=== PATIENT | male | born 1945 | race Caucasian/White ===

== ENCOUNTER 2024-11-26 15:29 | Emergency (ER) | payer MEDICARE, SELFPAY ==
--- NOTE | ~2024-11-26 | XR_ITS ---
EXAMINATION: XR chest 2V DATE: 11/26/2024 16:28 INDICATION: Congestion. Fever. TECHNIQUE: Frontal and lateral views of the chest were obtained. COMPARISON: Chest 2 views 01/27/2019 FINDINGS: Hunter B-lines are noted, consistent with mild pulmonary edema. No pleural effusion or pneu mothorax. Cardiomegaly is noted. Again seen are radiopaque foreign bodies in left neck. There are ana gical clips in the abdomen. There is a compression fracture of T12. IMPRESSION: 1. Mild pulmonary edema. 2. Cardiomegaly. Reviewed, dictated and finalized at location A. RNATIONAL PROJECT ENGINEER
[2024-11-26 15:42] VITALS: BP 166/71; PULSE 98; RESP 20; TEMP 38.1; O2SAT 100
--- NOTE | 2024-11-26 16:09 | ECG_ITS ---
Test Date: 2024-11-26 16:41:21 Measurements Intervals [place] Rate: 90 P: 43 MO: 181 QRS: -37 QRSD: 157 T: 78 QT: 383 QTc: 470 Interpretive Statements SINUS RHYTHM POSSIBLE LEFT ATRIAL ENLARGEMENT [-0.1mV P WAVE IN V1/V2] MARKED LEFT AXIS DEVIATION [QRS AXIS < -30] LEFT BUNDLE BRANCH BLOCK [120+ ms QRS DURATION, 80+ ms Q/S IN V1/V2, 85+ ms R IN I/aVL/V5/V6] No previous ECG available for comparison Electronically Signed On 11-26-2024 21:11:01 PIPE ORGAN BUILDER by Oleg Paredes M.D.
--- NOTE | 2024-11-26 16:12 | ED.GENADULT ---
HPI - General Adult General Chief complaint: Unspecified Stated complaint: Leg Pain/Chest Congestion Time Seen by Provider: 11/26/24 16:12 Source: patient Mode of arrival: ambulatory Limitations: no limitations History of Present Illness HPI narrative: 79 y/o male presented for c/o chest congestion and generalized weakness x3 days. says he did not feel like eating his meal today. Patient says his legs ?do not want to work. ? Endorses discomfort? to the mid chest. Denies cough, shortness of breath, wheezing, vomiting diarrhea, fevers or lethargy Related Data Home Medications ?Medication ?Instructions ?Recorded ?Confirmed ?Last Taken ?Type atorvastatin 20 mg tablet 20 mg PO QPM 11/26/24 11/26/24 Unknown History losartan 50 mg tablet 50 mg PO DAILY 11/26/24 11/26/24 Unknown History metformin 500 mg tablet 500 mg PO DAILY 11/26/24 11/26/24 Unknown History metoprolol succinate 25 mg 25 mg PO DAILY 11/26/24 11/26/24 Unknown History tablet,extended release 24 hr omeprazole 20 mg capsule,delayed 20 mg PO DAILY 11/26/24 11/26/24 Unknown History release Allergies Allergy/AdvReac Type Severity Reaction Status Date / Time No Known Allergies Allergy Verified 11/26/24 15:46 Review of Systems Review of Systems: per HPI All systems reviewed & are unremarkable except as noted in HPI and below [facility] Past Medical History Medical History (Updated 11/26/24 @ 17:01 by Gianna King, PORFIRIO) Diabetes Comments At time of signature, I have reviewed and agree with nursing past medical, surgical, social and family history unless otherwise noted. Please see nursing chart for further information. There is no relevant family history pertinent to the presenting complaint Exam Narrative: GENERAL: Well-appearing EYES: EOMI. No redness or drainage. Conjunctivae normal. ENT: Mucous membranes pink and moist. No rhinorrhea. CHEST: No respiratory distress. Clear to auscultation. HEART: Regular rate and rhythm. No murmur appreciated. Normal peripheral pulses. ABDOMEN: Soft, nontender, nondistended, normal active bowel sounds. EXTREMITIES: Normal range of motion. No edema. SKIN: Warm, dry, no rash. Capillary refill normal. Normal skin turgor. NEURO: No focal deficits. Alert and oriented x3. Gait steady. PSYCH: Normal affect. Course Course Emergency Course: Patient is aware of diagnosis, understands and agrees to treatment plan. Anticipatory guidance given. Patient agrees to follow-up as directed and is aware of reasons to seek care at the emergency department. Portions of this record may have been created with voice recognition software Level of Care: Express Care Visit Vital Signs Vital signs: Vital Signs Temperature 100.5 F H 11/26/24 15:42 Pulse Rate 98 11/26/24 15:42 Respiratory Rate 20 11/26/24 15:42 Blood Pressure 166/71 H 11/26/24 15:42 Pulse Oximetry 100 11/26/24 15:42 Oxygen Delivery Room Air 11/26/24 15:42 Temperature 100.5 F H 11/26/24 15:42 Pulse Rate 98 11/26/24 15:42 Respiratory Rate 20 11/26/24 15:42 Blood Pressure 166/71 H 11/26/24 15:42 Pulse Oximetry 100 11/26/24 15:42 Oxygen Delivery Room Air 11/26/24 15:42 Medical Decision Making MDM Narrative Medical decision making narrative: Discussed physical exam findings; EKG and CXR reviewed with pt showed mild pulmonary edema. Advised supportive measures and signs/symptoms to go to the ER. Pt is appropriate for outpt treatment and f/u. Offered ER transfer, declines, Says he is scheduled with pcp tomorrow. Differential Diagnosis Differential Diagnosis: Influenza, covid, sinusitis, OM, strep pharyngitis, URI Vital Signs Vital Signs: Vital Signs Temperature 100.5 F H 11/26/24 15:42 Pulse Rate 98 11/26/24 15:42 Respiratory Rate 11/26/24 15:42 Blood Pressure 166/71 H 11/26/24 15:42 Pulse Oximetry 100 11/26/24 15:42 Oxygen Delivery Room Air 11/26/24 15:42 Temperature 100.5 F H 11/26/24 15:42 Pulse Rate 98 11/26/24 15:42 Respiratory Rate 11/26/24 15:42 Blood Pressure 166/71 H 11/26/24 15:42 Pulse Oximetry 100 11/26/24 15:42 Oxygen Delivery Room Air 11/26/24 15:42 reviewed Imaging Data Radiologist's impression: Patient: Andre Vazquez : 1945 MR#: [id number] Age: 79 Acct:[id number] Loc: [facility] ADM Date: 11/26/24Attending Dr: Ordering Physician: Gianna King APRN Date of Service: 11/26/24 Procedure(s): XR chest 2V Accession Number(s): [id number] cc: Gianna King APRN; EMERGENCY DEPARTMENT RN PHYSICIAN~ EXAMINATION: XR chest 2V DATE: 11/26/2024 16:28 INDICATION: Congestion. Fever. TECHNIQUE: Frontal and lateral views of the chest were obtained. COMPARISON: Chest 2 views 01/27/2019 FINDINGS: Hunter B-lines are noted, consistent with mild pulmonary edema. No pleural effusion or pneumothorax. Cardiomegaly is noted. Again seen are radiopaque foreign bodies in left neck. There are surgical clips in the abdomen. There is a compression fracture of T12. IMPRESSION: 1. Mild pulmonary edema. 2. Cardiomegaly. ECG Data EKG #1: Attestation: I personally reviewed and interpreted this ECG as follows: (Sinus rhythm 90, ME 181, QRS 157, QT/QTC 383/431) ECG completion date: 11/26/24 ECG completion time: 16:41 Prior ECG tracings: not available for review EKG Interpretation: normal rate, sinus rhythm and LBBB Discharge Plan Discharge Clinical Impression: Viral infection Patient Disposition: Home, Self-Care Condition: Stable Instructions: Antibiotic Form, Viral Syndrome (ED) Additional Instructions: Flu and COVID negative. Avoid crowds until you do not have a fever and symptoms are improved Tylenol 1000mg every 8 hours as needed for pain/fever Follow up with your primary care provider as scheduled tomorrow Go to the ER for worsening symptoms or concerns Patient Language: Lao Prescriptions: No Action atorvastatin 20 mg tablet 20 mg PO QPM losartan 50 mg tablet 50 mg PO DAILY metformin 500 mg tablet 500 mg PO DAILY metoprolol succinate 25 mg tablet extended release 24 hr 25 mg PO DAILY omeprazole 20 mg capsule,delayed release(DR/EC) 20 mg PO DAILY Follow-up/Referrals: PHYSICIAN,EMERGENCY DEPARTMENT RN [Primary Care Provider] - Time of Disposition: 16:54
[2024-11-26 16:49] LABS: EDCOVIDSCREEN Negative (Negative); EDINFLUASCREEN Negative (Negative); EDINFLUBSCREEN Negative (Negative)
== END 2024-11-26 17:02 | disposition home or self-care (01) ==
PROVIDERS: Emergency Provider Nurse Practitioner Family
DX: B34.9 Viral infection, unspecified (principal); Z20.822 Contact with and (suspected) exposure to COVID-19; I44.7 Left bundle-branch block, unspecified; E11.9 Type 2 diabetes mellitus without complications
CPT/HCPCS: 71046; 87426; 87804; 93005; 99203; G0463

== ENCOUNTER 2024-11-27 09:45 | Outpatient (CLI) | payer MEDICARE, OTHER, SELFPAY ==
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
[2024-11-27 10:19] LABS: Basophils Absolute Auto 0.03 K/mm3 (0.00-0.10); Basophils Percent Auto 0.4 % (0.0-1.0); Eosinophils Absolute Auto 0.03 K/mm3 (0.02-0.50); Eosinophils Percent Auto 0.4 % (1.0-6.0); Hematocrit 44.2 % (37.0-46.0); Immature Granulocyte Absolute 0.02 K/mm3 (0.00-0.00); Immature Granulocyte Percent A 0.3 % (0.0-0.0); Lymphocytes Absolute Auto 1.39 K/mm3 (1.10-4.50); Lymphocytes Percent Auto 18.7 % (18.0-42.0); Mean Corpuscular HGB Conc 33.9 g/dL (32-36); Mean Corpuscular Hemoglobin 29.8 pg (27.0-31.0); Mean Corpuscular Volume 87.7 fL (78.0-102.0); Mean Platelet Volume 9.8 fl (8.7-11.0); Monocytes Absolute Auto 0.73 K/mm3 (0.10-0.90); Monocytes Percent Auto 9.8 % (2.0-11.0); Neutrophils Absolute Auto 5.25 K/mm3 (1.70-7.20); Neutrophils Percent Auto 70.4 % (50.0-70.0); Platelet Count Result 167 K/mm3 (150-420); Red Blood Count 5.04 M/mm3 (4.70-6.10); White Blood Count 7.5 K/mm3 (4.8-10.8)
[2024-11-27 10:27] LABS: Add Urine Microscopic? YES; Appearance Urine Clear (Clear); Bilirubin Urine Negative (Negative); Blood Urine Negative (Negative); Color Urine Light Yellow (Yellow); Glucose Urine UA 2+ (Negative); Ketones Urine Negative (Negative); Leukocyte Esterase Ur Negative (Negative); Nitrate Urine Negative (Negative); Protein Urine 1+ (Negative); pH Urine 5.5 (5.0-8.0)
--- OUTSIDE RECORDS SUMMARY | 2024-11-27 10:33 | XMS_ITS | Encounter Summary ---
Author Organization [facility] - [facility] Address [address] [place] [address]. [place] [address] [place] [address] Care Team Providers Care Investigations Chief Name Role Phone Brendon Mathews MD Primary Care Provider [phone] Encounter Details Date Type Department Care Team (Late st Contact Info) Description 08/13/2020 Abstract [facility] [address] [place] [address] Abstract, Doc [facility] Social History Tobacco Use Types Packs/Day Years Used Date Smoking Tobacco: Never Alcohol Use Standard Drinks/Week Comments Never 0 (1 standard drink = 0.6 oz pur e alcohol) AUDIT-C Answer Date Recorded Q1: How often do you have a drink containing alc ohol? 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 No / Unsure 08/07/2020 9:51 AM CDT documented as of this encounter Plan of Treatment Not on file documented as of this encounter Visit Diagnoses Not on filedocumented in this encounter Care Teams Investigations Chief Relationship Specialty Start Date End Date Brendon Mathews MD [address] [place] [id number] PCP - General FAMILY PRACTICE 07/14/20 documented as of this encounter
--- OUTSIDE RECORDS SUMMARY | 2024-11-27 10:33 | XMS_ITS | Clinical Summary ---
Author Organization [facility] Address [address] [place] [address]. [place] [address] [place] [address] Care Team Providers Care Mill Manager Name Role Phone Brendon Mathews MD Primary Care Provider [phone] Allergies Active Allergy Reactions Criticality Noted Date Comments Miconazole Sneezing 08/13/2020 Medications atorvastatin 20 MG tablet Take 1 tablet (20 mg total) by mouth daily. 07/31/2020 Active losartan 50 MG tablet TK 1 AND 1/2 TS PO D 07/31/2020 Active metFORMIN 500 MG tablet Take 1 tablet (500 mg total) by mouth 2 (two) times daily. 07/31/2020 Active metoprolol succinate ER 25 MG 24 hr tablet Take 0.5 tablets (12.5 mg total) by mouth daily. 07/31/2020 Active omeprazole 20 MG capsule TK 1 C PO D 07/31/2020 Active finasteride (PROSCAR) 5 MG tablet Take 1 tablet (5 mg total) by mouth daily. Active Active Problems Problem Noted Date Diagnosed Date Abnormal stress test 08/22/2020 Essential hypertension 08/22/2020 Mixed hyperlipidemia 08/22/2020 Encounters Date Type Department Care Team Description 09/18/2024 [facility] [address] [place] [address] Brittany Owen LPN Pre-visit Gap Closure from Last 3 Months Immunizations Name Administration Dates Next Due Fluzone High Dose (IIV, trivalent, 0.5mL) 2023,07/14/2017 Fluzone High Dose - >Age 65 (Prefilled Syringe) 07/15/2023,08/06/2022,07/31/2021 Influenza (Generic) 08/21/2015,08/10/2014,2011 PFIZER COVID-19 (12+) MRNA, LNP-S, PF, ANNABEL-SUCROSE, 30 MCG/0.3 ML (COMIRNATY) 07/10/2024,01/30/2024 PFIZER COVID-19 (GOODSON CAP), MRNA, LNP-S, PF, 30 MCG/0.3 ML ANNABEL-SUCROSE, IM 02/12/2022 Pneumococcal (Prevnar 13) 08/16/2017 Pneumococcal (Prevnar 20) 02/07/2024 Shingrix 05/26/2022,09/02/2021 Tdap (Generic) 09/02/2021 Zoster (Zostavax) 84349 Unt/0.65Ml 07/01/2014 Family History Medical History Relation Comments Sleep Apnea Father Diabetes Mother Downs syndrome Sister 2 Relation Status Comments Father Mother Sister 1 Sister 2 Sister 3 Alive Social History Tobacco Use Types Packs/Day Years Used Date Smoking Tobacco: Never Smokeless Tobacco: Never Alcohol Use Standard Drinks/Week Comments [...] on file Legal 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 SUPERVISOR 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 Gender Identity Not on file Sexual Orientation Not on file Last Filed Vital Signs Vital Sign Reading Time Taken Comments Blood Pressure 180/63 09/20/2023 9:38 AM SUPERVISOR SCENIC ARTS Pulse 55 09/20/2023 9:38 AM SUPERVISOR SCENIC ARTS Temperature 36.2 ??C (97.1 ??F) 09/20/2023 9:38 AM CS T Respiratory Rate 18 09/20/2023 9:38 AM SUPERVISOR SCENIC ARTS Oxygen Saturation 100% 09/20/2023 9:38 AM SUPERVISOR SCENIC ARTS Inhaled Oxygen Concentration - - Weight 93 kg (205 lb) 09/12/2023 9:38 AM SUPERVISOR SCENIC ARTS Height 175.3 cm (5' 9 ) 09/12/2023 9:38 AM SUPERVISOR SCENIC ARTS Body Mass Index 30.27 09/12/2023 9:38 AM SUPERVISOR SCENIC ARTS Plan of Treatment Health Maintenance Due Date Last Done Comments Hepatitis C 1963 Annual Medicare Wellness Visit 2011 RSV Immunization or 60+ Years (1 - 1-dose 75+ series) 2021 DTaP, Tdap and Td Vaccines (2 - Td or Tdap) 09/02/2031 09/02/2021 Zoster Vaccines Completed 05/26/2022, 12/2020, 07/01/2014 Colorectal Cancer Screening Colonoscopy (10 Years) Discontinued 09/20/2023, 09/20/2023 Pneumococcal Vaccine: 65+ Years Completed 02/07/2024, 08/16/2017 COVID-19 Vaccine Completed 07/10/2024, 10/2023, 07/27/2023, Additional history exists Influenza Adult Completed 07/10/2024, 07/01, 08/06/2022, Additional history exists Meningococcal B Vaccine Aged Out No l onger eligible based on patient's age to complete this topic Meningococcal Vaccine Aged Out No katie dariel eligible based on patient's age to complete this topic RSV Immunizations Under 20 Months Aged Out No longer eligible based on patient's age to complete this topic Procedures Procedure Name Priority Date/Time Associated Diagnosis Comments COLONOSCOPY 09/20/2023 6:49 AM SUPERVISOR SCENIC ARTS from Last 3 Months or Most Recently Relevant to Health Maintenance Results * Colonoscopy (09/20/2023 6:49 AM SUPERVISOR SCENIC ARTS) Silvestre Ogden MD GI PROCEDURE ORDERABLES Final Result from Last 3 Months or Most Recently Relevant to Health Maintenance Insurance * Guarantor: Andre Vazquez Account Type Relation to Patient Date of Phone Billing Address Personal/Family Self 1945 [address] [place] [address] [employer] Care Teams Mill Manager Relationship Specialty Start Date End Date Brendon Mathews MD [address] [place] [address] PCP - General FAMILY PRACTICE 07/14/20
[2024-11-27 10:45] LABS: Bacteria Urine Trace /hpf; RBC Urine None seen /hpf (0-2); Squamous Epithelial Cell Urine Rare /hpf (Few); WBC Urine None seen /hpf (0-3)
[2024-11-27 10:55] LABS: SARS-CoV-2 RNA PCR Negative (Negative)
[2024-11-27 10:57] LABS: Influenza A QL RT-PCR Negative (Negative); Influenza B QL RT-PCR Negative (Negative)
[2024-11-27 11:02] LABS: Alanine Aminotransferase 39 U/L (16-63); Albumin Level 3.9 g/dL (3.4-5.0); Alkaline Phosphatase 72 U/L (46-116); Anion Gap 13 mmol/L (4-12); Aspartate Amino Transferase 24 U/L (15-37); Bilirubin,Total 0.8 mg/dL (0.00-1.00); Blood Urea Nitrogen 17 mg/dL (7-18); Carbon Dioxide 24 mmol/L (21-32); Chloride 100 mmol/L (98-108); Creatine Kinase 31 U/L (39-308); Estimated Glomerular Filt Rate 51; Glucose 230 mg/dL (70-99); NT Pro B Type Natriuretic Pept 1544 pg/mL (0-450); Osmolality Calculated 292 mOsm/kg (285-295); Potassium 3.8 mmol/L (3.5-5.1); Sodium 137 mmol/L (136-145); Total Protein 7.4 g/dL (6.4-8.2); Troponin I 15.6 ng/L (0.00-60.4); Vitamin B12 562 pg/mL (193-986)
[2024-11-27 11:08] LABS: Creatine Kinase MB < 0.50 ng/mL (0.00-5.00)
[2024-11-29 14:08] LABS: RPR Screen NON-REACTIVE (NON-REACTIVE)
== END 2024-11-27 09:46 | disposition home or self-care (01) ==
LOC: CHSLAB 09:52
PROVIDERS: PCP Family Medicine; Visit Provider Family Medicine
DX: R06.00 Dyspnea, unspecified (principal); R07.9 Chest pain, unspecified; R41.0 Disorientation, unspecified; R29.810 Facial weakness
CPT/HCPCS: 36415; 71046; 80053; 81001; 82550; 82553; 82607; 83880; 84443; 84484; 85025; 86592; 87086; 87636

== ENCOUNTER 2024-11-30 09:38 | Outpatient (CLI) | payer MEDICARE, OTHER, SELFPAY ==
--- OUTSIDE RECORDS SUMMARY | 2024-11-30 09:53 | XMS_ITS | Clinical Summary ---
Author Organization [facility] Address [address] [place] [address]. 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 Gender Identity Not on file Sexual Orientation Not on file Last Filed Vital Signs Vital Sign Reading Time Taken Comments Blood Pressure 180/63 09/20/2023 9:38 AM FACING END TRIMMER Pulse 55 09/20/2023 9:38 AM FACING END TRIMMER Temperature 36.2 ??C (97.1 ??F) 09/20/2023 9:38 AM CS T Respiratory Rate 18 09/20/2023 9:38 AM FACING END TRIMMER Oxygen Saturation 100% 09/20/2023 9:38 AM FACING END TRIMMER Inhaled Oxygen Concentration - - Weight 93 kg (205 lb) 09/12/2023 9:38 AM FACING END TRIMMER Height 175.3 cm (5' 9 ) 09/12/2023 9:38 AM FACING END TRIMMER Body Mass Index 30.27 09/12/2023 9:38 AM FACING END TRIMMER Plan of Treatment Health Maintenance Due Date [...] Associated Diagnosis Comments COLONOSCOPY 09/20/2023 6:49 AM FACING END TRIMMER from Last 3 Months or Most Recently Relevant to Health Maintenance Results * Colonoscopy (09/20/2023 6:49 AM FACING END TRIMMER) Silvestre Ogden MD GI PROCEDURE ORDERABLES Final Result from Last 3 Months or Most Recently Relevant to Health Maintenance Insurance * Guarantor: Andre Vazquez Account Type Relation to Patient Date of Phone Billing Address Personal/Family Self 1945 [address] [place] [address] [employer] Care Teams Sourcing Intern Relationship Specialty Start Date End Date Brendon Mathews MD [address] [facility] [place] [address] PCP - General FAMILY PRACTICE 07/14/20
--- OUTSIDE RECORDS SUMMARY | 2024-11-30 09:53 | XMS_ITS | Encounter Summary ---
Author Organization [facility] - [facility] Address [address] [place] [address]. 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
[2024-11-30 10:48] LABS: Anion Gap 10 mmol/L (4-12); Blood Urea Nitrogen 23 mg/dL (7-18); Calcium 9.1 mg/dL (8.5-10.1); Carbon Dioxide 26 mmol/L (21-32); Chloride 102 mmol/L (98-108); Estimated Glomerular Filt Rate 56; Glucose 231 mg/dL (70-99); NT Pro B Type Natriuretic Pept 534 pg/mL (0-450); Osmolality Calculated 296 mOsm/kg (285-295); Potassium 3.9 mmol/L (3.5-5.1); Sodium 138 mmol/L (136-145)
== END 2024-11-30 09:39 | disposition home or self-care (01) ==
LOC: CHSLAB 09:40
PROVIDERS: PCP Family Medicine; Visit Provider Family Medicine
DX: R07.9 Chest pain, unspecified (principal); R41.0 Disorientation, unspecified; R06.00 Dyspnea, unspecified
CPT/HCPCS: 36415; 80048; 83880

== ENCOUNTER 2024-12-01 08:56 | Outpatient (CLI) | payer MEDICARE, OTHER, SELFPAY ==
--- NOTE | ~2024-12-01 | MR_ITS ---
EXAMINATION: MR brain/brain stem wo/w con DATE: 12/01/2024 09:46 INDICATION: Facial weakness. Memory loss. TECHNIQUE: Magnetic resonance imaging (MRI) of the brain and brainstem was performed without and with 20 mL MultiHance intravenous contrast. COMPARISON: None. 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 There are scattered areas of nonspecific incre ased T2-weighted signal intensity in the cerebral white matter, which is within normal limits for the patient's age. There are old blood products around the brainstem. There is no acute infarction or ab normal intracranial mass lesion. The ventricles are normal in size. There is mild mucosal thickening in the paranasal sinuses. There are likely changes of ocular lens replacement surgeries. There is a t race right mastoid effusion. IMPRESSION: 1. 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 Reviewed, dictated and finalized at location A. ESTIMATOR
--- OUTSIDE RECORDS SUMMARY | 2024-12-01 09:00 | XMS_ITS | Clinical Summary ---
Author Organization [facility] Address [address] [place] [address]. [place] [address] [place] [address] Care Team Providers Care Mica Patcher Name Role Phone Brendon Mathews MD Primary Care Provider [phone] Allergies Active Allergy Reactions Criticality Noted Date [...] Team Description 09/18/2024 [facility] [address] [place] [address] Brittany Owen LPN Pre-visit Gap [...] Shingrix 05/26/2022,09/02/2021 Tdap (Generic) 09/02/2021 Zoster (Zostavax) 64405 Unt/0.65Ml 07/01/2014 Family History Medical History Relation [...] on file Legal 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 PER DIEM PHYSICAL THERAPIST ASSISTANT Gender Identity Not on file Sexual Orientation Not on file Last Filed Vital Signs Vital Sign Reading Time Taken Comments Blood Pressure 180/63 09/20/2023 9:38 AM PER DIEM PHYSICAL THERAPIST ASSISTANT Pulse 55 09/20/2023 9:38 AM PER DIEM PHYSICAL THERAPIST ASSISTANT Temperature 36.2 ??C (97.1 ??F) 09/20/2023 9:38 AM CS T Respiratory Rate 18 09/20/2023 9:38 AM PER DIEM PHYSICAL THERAPIST ASSISTANT Oxygen Saturation 100% 09/20/2023 9:38 AM PER DIEM PHYSICAL THERAPIST ASSISTANT Inhaled Oxygen Concentration - - Weight 93 kg (205 lb) 09/12/2023 9:38 AM PER DIEM PHYSICAL THERAPIST ASSISTANT Height 175.3 cm (5' 9 ) 09/12/2023 9:38 AM PER DIEM PHYSICAL THERAPIST ASSISTANT Body Mass Index 30.27 09/12/2023 9:38 AM PER DIEM PHYSICAL THERAPIST ASSISTANT Plan of Treatment Health Maintenance Due Date [...] Associated Diagnosis Comments COLONOSCOPY 09/20/2023 6:49 AM PER DIEM PHYSICAL THERAPIST ASSISTANT from Last 3 Months or Most Recently Relevant to Health Maintenance Results * Colonoscopy (09/20/2023 6:49 AM PER DIEM PHYSICAL THERAPIST ASSISTANT) Silvestre Ogden MD GI PROCEDURE ORDERABLES Final Result from Last 3 Months or Most Recently Relevant to Health Maintenance Insurance * Guarantor: Andre Vazquez Account Type Relation to Patient Date of Phone Billing Address Personal/Family Self 1945 [address] [place] [address] [employer] Care Teams Mica Patcher Relationship Specialty Start Date End Date Brendon Mathews MD [address] [place] [address] PCP - General FAMILY PRACTICE 07/14/20
--- OUTSIDE RECORDS SUMMARY | 2024-12-01 09:00 | XMS_ITS | Encounter Summary ---
Author Organization [facility] - [facility] Address [address] [place] [address]. [place] [address] [place] [address] Care Team Providers Care Technology Recruiter Name Role Phone Brendon Mathews MD Primary Care Provider [phone] Encounter Details Date Type Department Care Team (Late st Contact Info) Description 08/13/2020 Abstract [facility] [address] [place] [address] Abstract, Doc [facility] Social History Tobacco Use [...] on file Legal 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 RN VASCULAR Gender Identity Not on file Sexual Orientation [...] on filedocumented in this encounter Care Teams Technology Recruiter Relationship Specialty Start Date End Date Brendon Mathews MD [address] [place] [phone] PCP - General FAMILY PRACTICE 07/14/20 documented as of this encounter
== END 2024-12-01 08:57 | disposition home or self-care (01) ==
LOC: CHSIMG 08:58
PROVIDERS: PCP Family Medicine; Visit Provider Family Medicine
DX: R29.810 Facial weakness (principal); R07.9 Chest pain, unspecified; Z86.73 Personal history of transient ischemic attack (TIA), and cerebral infarction without residual deficits
CPT/HCPCS: 70553; A9577

== ENCOUNTER 2024-12-11 13:51 | Outpatient (CLI) | payer MEDICARE, OTHER, SELFPAY ==
--- NOTE | 2024-12-11 13:57 | ECHO_ITS ---
Patient Info Name: Andre Vazquez Age: 79 years : 1945 Gender: Male Ht: 69 in Wt: 210 lbs BSA: 2.18 m2 HR: 98 bpm BP: 166 / 71 mmHg Heart Rhythm: Sinus Rhythm Technical Quality: Good Exam Date: 12/11/2024 2:31 PM Exam Location: Echo Lab Patient Status: Outpatient Admit Date: 12/11/2024 Staff Ordering Physician: Juan Carlos Maier MD Quiller Operator: Rekha Barr RDCS Attending Provider: Juan Carlos Maier MD Referring Physician: Darrion TRINIDAD; Exam Type: CA echo doppler color flow Study Info Indications - Chest pain Complete two-dimensional, color flow and Doppler transthoracic echocardiogram is performed. Summary 1. Complete two-dimensional, color flow and Doppler transthoracic echocardiogram is performed. 2. Left ventricular chamber dimension is severely enlarged. 3. Left ventricular systolic function is moderately reduced, estimated at 35-40%. 4. The left ventricular diastolic function is grade I diastolic dysfunction. 5. E/e' 6 is not elevated. 6. Left atrial chamber dimension is mildly enlarged. 7. There is mild aortic valve regurgitation. 8. There is mild mitral valve regurgitation. 9. There is trace tricuspid valve regurgitation. 10. Mild pulmonary hypertension, estimated pulmonary arterial systolic pressure is 46 mmHg. 11. There is trace pulmonic regurgitation. 12. There is trivial pericardial effusion. Left Ventricle E/e' 6 is not elevated. Left ventricular chamber dimension is severely enlarged. Left ventricular systolic function is moderately reduced, estimated at 35-40%. The left ventricular diastolic function is grade I diastolic dysfunction. Right Ventricle Right ventricular systolic function is normal and with normal TAPSE 1.8 cm. Right ventricular chamber dimension is normal. Left Atria Left atrial chamber dimension is mildly enlarged. Right Atria Right atrial chamber dimension is normal. Aortic Valve The aortic valve is trileaflet. There is no aortic valve stenosis. There is mild aortic valve regurgitation. Pulmonic Valve There is trace pulmonic regurgitation. Mitral Valve There is no mitral valve stenosis. There is mild mitral valve regurgitation. Tricuspid Valve There is trace tricuspid valve regurgitation. Mild pulmonary hypertension, estimated pulmonary arterial systolic pressure is 46 mmHg. Pericardium/Pleural There is trivial pericardial effusion. Inferior Vena Cava Normal inferior vena cava with >50% collapse upon inspiration consistent with normal right atrial pressure, 5 mmHg. Aorta The aortic root size at the sinus of Valsalva is normal. Left Ventricular Outflow Tract Name Value Normal LVOT 2D LVOT Diameter 2.6 cm LVOT Doppler LVOT Peak Velocity 68 cm/s LVOT Peak Gradient 2 mmHg LVOT Mean Gradient 1 mmHg LVOT VTI 13 cm LVOT VTI/AV VTI Ratio 1.0 LVOT Stroke Volume 71 ml Pulmonic Valve Name Value Normal PV Doppler PV Peak Velocity 129 cm/s PV Peak Gradient 7 mmHg PV Regurgitation Doppler MT Peak End Diastolic Velocity 97 cm/s Mitral Valve Name Value Normal MV Doppler MV Peak Gradient 3 mmHg MV Mean Gradient 1 mmHg MV Decel [place] 210 cm/s2 MV PHT 45 ms MV Area (PHT) 4.9 cm2 4.0-5.0 MV Area (Cont Eq VTI) 3.6 cm2 MV Regurgitation Doppler MR Peak Gradient 82 mmHg MV Diastolic Function MV E Peak Velocity 32 cm/s MV A Peak Velocity 63 cm/s MV E/A 0.5 MV Decel Time 154 ms Tricuspid Valve Name Value Normal TV Regurgitation Doppler TR Peak Velocity 320 cm/s TR Peak Gradient 41 mmHg Estimated PAP/RSVP RA Pressure 5 mmHg <=5 PA Systolic Pressure 46 mmHg <36 RV Systolic Pressure 46 mmHg <36 Aortic Valve Name Value Normal AV Doppler AV Peak Velocity 90 cm/s AV Peak Gradient 3 mmHg AV Mean Gradient 2 mmHg AV VTI 14 cm AV Area (Cont Eq VTI) 5.2 cm2 >=3.0 AV Area (Cont Eq Zeke) 4.1 cm2 AV V1/V2 Ratio 0.75 AV Regurgitation 2D LVOT Area 5.5 cm2 AV Regurgitation Doppler AR Decel Time 2,997 ms AR Decel [place] 134 cm/s2 AR PHT 869 ms Ventricles Name Value Normal LV Dimensions 2D/MM IVS Diastolic Thickness (2D) 1.0 cm 0.6-1.0 LVID Diastole (2D) 6.8 cm 4.2-5.8 LVID Diastole (MM) 6.7 cm 4.2-5.8 LVIW Diastolic Thickness (2D) 1.0 cm 0.6-1.0 LVID Systole (2D) 5.3 cm 2.5-4.0 LVID Systole (MM) 5.2 cm 2.5-4.0 LVOT Diameter 2.6 cm LV Mass (2D Cubed) 316.95 g 88.00-224.00 LV Mass Index (2D Cubed) 145 g/m2 49-115 Relative Wall Thickness (2D) 0.31 LV Fractional Shortening/Ejection Fraction 2D/MM LV Fractional Shortening (2D) 24 % 25-43 LV Fractional Shortening (MM) 23 % 25-43 LV EF (MM Teicholz) 46 % 52-72 LV EF (2D Teicholz) 46 % 52-72 LV Diastolic Volume (4C MOD) 245 ml LV EF (4C MOD) 39 % LV Diastolic Length (4C) 9.1 cm LV Systolic Length (4C) 8.2 cm LV Stroke Volume (4C MOD) 103 ml Atria Name Value Normal LA Dimensions LA Volume (4C A-L) 69 ml RA Dimensions RA Area (4C) 16.2 cm2 <=18.0 Report Signatures
--- OUTSIDE RECORDS SUMMARY | 2024-12-11 14:46 | XMS_ITS | Clinical Summary ---
Author Organization [facility] Address [address] [place] [address] Care Team Providers Care Horse Groomer Name Role Phone Brendon Mathews MD Primary Care Provider [phone] Allergies Active Allergy Reactions Criticality Noted Date Comments Miconazole Sneezing 08/13/2020 Medications atorvastatin 20 MG tablet Take 1 tablet (20 mg total) by mouth daily. 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 Gender Identity Not on file Sexual Orientation Not on file Last Filed Vital Signs Vital Sign Reading Time Taken Comments Blood Pressure 180/63 09/20/2023 9:38 AM WATER RESOURCES PROGRAM DIRECTOR Pulse 55 09/20/2023 9:38 AM WATER RESOURCES PROGRAM DIRECTOR Temperature 36.2 C (97.1 F) 09/20/2023 9:38 AM WATER RESOURCES PROGRAM DIRECTOR Respiratory Rate 18 09/20/2023 9:38 AM WATER RESOURCES PROGRAM DIRECTOR Oxygen Saturation 100% 09/20/2023 9:38 AM WATER RESOURCES PROGRAM DIRECTOR Inhaled Oxygen Concentration - - Weight 93 kg (205 lb) 09/12/2023 9:38 AM WATER RESOURCES PROGRAM DIRECTOR Height 175.3 cm (5' 9 ) 09/12/2023 9:38 AM WATER RESOURCES PROGRAM DIRECTOR Body Mass Index 30.27 09/12/2023 9:38 AM WATER RESOURCES PROGRAM DIRECTOR Plan of Treatment Health Maintenance Due Date [...] Associated Diagnosis Comments COLONOSCOPY 09/20/2023 6:49 AM WATER RESOURCES PROGRAM DIRECTOR from Last 3 Months or Most Recently Relevant to Health Maintenance Results * Colonoscopy (09/20/2023 6:49 AM WATER RESOURCES PROGRAM DIRECTOR) Silvestre Ogden MD GI PROCEDURE ORDERABLES Final Result from Last 3 Months or Most Recently Relevant to Health Maintenance Insurance [employer] * Guarantor: Andre Vazquez Account Type Relation to Patient Date of Phone Billing Address Personal/Family Self 1945 [address] [place] [address] [employer] Care Teams Horse Groomer Relationship Specialty Start Date End Date Brendon Mathews MD [address] [place] [id number] PCP - General FAMILY PRACTICE 07/14/20
--- OUTSIDE RECORDS SUMMARY | 2024-12-11 14:46 | XMS_ITS | Encounter Summary ---
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
== END 2024-12-11 13:52 | disposition home or self-care (01) ==
LOC: CHSIMG 13:53
PROVIDERS: PCP Family Medicine; Visit Provider Family Medicine
DX: R07.9 Chest pain, unspecified (principal); R41.0 Disorientation, unspecified; I27.20 Pulmonary hypertension, unspecified; I08.3 Combined rheumatic disorders of mitral, aortic and tricuspid valves
CPT/HCPCS: 93306

== ENCOUNTER 2025-02-01 11:19 | Outpatient (CLI) | payer MEDICARE, OTHER, SELFPAY ==
--- NOTE | 2025-02-01 11:38 | ECG_ITS ---
Test Date: 2025-02-01 11:51:36 Measurements Intervals [place]mage Rate: 62 P: 58 IA: 173 QRS: 59 QRSD: 155 T: 64 QT: 455 QTc: 464 Interpretive Statements SINUS RHYTHM LEFT BUNDLE BRANCH BLOCK ABNORMAL ECG Compared to ECG 11/26/2024 16:41:21 NO SIGNIFICANT CHANGE Electronically Signed On 02-01-2025 13:43:27 CDT by Myke Amin D.O.
[2025-02-01 11:42] LABS: Hematocrit 42.3 % (37.0-46.0); Hemoglobin 13.9 g/dL (12.4-15.3); Mean Corpuscular HGB Conc 32.9 g/dL (32-36); Mean Corpuscular Hemoglobin 29.4 pg (27.0-31.0); Mean Corpuscular Volume 89.6 fL (78.0-102.0); Mean Platelet Volume 10.1 fl (8.7-11.0); Platelet Count Result 221 K/mm3 (150-420); Red Blood Count 4.72 M/mm3 (4.70-6.10); Red Cell Distribution Width 12.2 % (11.6-14.4); White Blood Count 8.1 K/mm3 (4.8-10.8)
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
--- OUTSIDE RECORDS SUMMARY | 2025-02-01 11:47 | XMS_ITS | Clinical Summary ---
Author Organization [facility] Address [facility] [place] [address] Care Team Providers Care Hospice Office Coordinator Name Role Phone Brendon Mathews MD Primary Care Provider [phone] Allergies Active Allergy Reactions Criticality Noted Date [...] 08/22/2020 Essential hypertension 08/22/2020 Mixed hyperlipidemia 08/22/2020 Immunizations Name Administration Dates Next Due Fluzone [...] Shingrix 05/26/2022,09/02/2021 Tdap (Generic) 09/02/2021 Zoster (Zostavax) 52695 Unt/0.65Ml 07/01/2014 Family History Medical History Relation [...] on file Legal 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 Gender Identity Not on file Sexual Orientation Not on file Last Filed Vital Signs Vital Sign Reading Time Taken Comments Blood Pressure 180/63 09/20/2023 9:38 AM SPORTS TEAM MARKETING INTERN Pulse 55 09/20/2023 9:38 AM SPORTS TEAM MARKETING INTERN Temperature 36.2 C (97.1 F) 09/20/2023 9:38 AM SPORTS TEAM MARKETING INTERN Respiratory Rate 18 09/20/2023 9:38 AM SPORTS TEAM MARKETING INTERN Oxygen Saturation 100% 09/20/2023 9:38 AM SPORTS TEAM MARKETING INTERN Inhaled Oxygen Concentration - - Weight 93 kg (205 lb) 09/12/2023 9:38 AM SPORTS TEAM MARKETING INTERN Height 175.3 cm (5' 9 ) 09/12/2023 9:38 AM SPORTS TEAM MARKETING INTERN Body Mass Index 30.27 09/12/2023 9:38 AM SPORTS TEAM MARKETING INTERN Plan of Treatment Health Maintenance Due Date Last Done Comments Hepatitis C 1963 Annual Medicare Wellness Visit 2011 RSV Immunization or 60+ Years (1 - 1-dose 75+ series) 2021 COVID-19 Vaccine ( season) 2025 07/10/2024, 01/30/2024, 07/27/2023, Additional history exists DTaP, Tdap and Td Vaccines (2 - Td or Tdap) 09/02/2031 09/02/2021 Zoster Vaccines Completed 05/26/2022, 12/2020, 07/01/2014 Colorectal Cancer Screening Colonoscopy (10 Years) Discontinued 09/20/2023, 09/20/2023 Pneumococcal Vaccine: 65+ Years Completed 02/07/2024, 08/16/2017 Meningococcal B Vaccine Aged Out No l onger eligible based on patient's age to complete this topic Meningococcal Vaccine Aged Out No katie dariel eligible based on patient's age to complete this topic RSV Immunizations Under 20 Months Aged Out No longer eligible based on patient's age to complete this topic Procedures Procedure Name Priority Date/Time Associated Diagnosis Comments COLONOSCOPY 09/20/2023 6:49 AM SPORTS TEAM MARKETING INTERN from Last 3 Months or Most Recently Relevant to Health Maintenance Results * Colonoscopy (09/20/2023 6:49 AM SPORTS TEAM MARKETING INTERN) Silvestre Ogden MD GI PROCEDURE ORDERABLES Final Result from Last 3 Months or Most Recently Relevant to Health Maintenance Insurance [employer] * Guarantor: Andre Vazquez Account Type Relation to Patient Date of Phone Billing Address Personal/Family Self 1945 [address] [place] [address] [employer] Care Teams Hospice Office Coordinator Relationship Specialty Start Date End Date Brendon Mathews MD [facility] [place] [phone] PCP - General FAMILY PRACTICE 07/14/20
--- OUTSIDE RECORDS SUMMARY | 2025-02-01 11:47 | XMS_ITS | Encounter Summary ---
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
[2025-02-01 12:03] LABS: Anion Gap 7 mmol/L (4-12); Blood Urea Nitrogen 18 mg/dL (7-18); Calcium 9.4 mg/dL (8.5-10.1); Carbon Dioxide 29 mmol/L (21-32); Chloride 107 mmol/L (98-108); Estimated Glomerular Filt Rate 54; Glucose 160 mg/dL (70-99); Osmolality Calculated 300 mOsm/kg (285-295); Potassium 4.6 mmol/L (3.5-5.1); Sodium 143 mmol/L (136-145)
== END 2025-02-01 11:20 | disposition home or self-care (01) ==
PROVIDERS: PCP Family Medicine
DX: R94.39 Abnormal result of other cardiovascular function study (principal); I45.10 Unspecified right bundle-branch block; R94.31 Abnormal electrocardiogram [ECG] [EKG]
CPT/HCPCS: 36415; 80048; 85027; 93005

== ENCOUNTER 2025-05-01 13:23 | Outpatient (CLI) | payer MEDICARE, OTHER, SELFPAY ==
--- NOTE | ~2025-05-01 | US_ITS ---
EXAMINATION: US carotid duplex BI DATE: 05/03/2025 16:19 CDT INDICATION: Vertigo, memory issues TECHNIQUE: Grayscale, color Doppler, and pulsed Doppler images of the cervical carotid arteries were obtained. The degree of vessel stenosis is placed in one of the following categories: normal, <50%, 50-69%, >=7 0% but less than near-occlusion, near-occlusion, or total occlusion. Note that percent stenosis relative to normal distal artery lumen diameter is indirectly measured fro m velocity measurements as described originally by Ross, et al. Radiology 2003; 229:340-346 and upda dev by Marty Bernard et al STROKE 2012;43(3);915-921. COMPARISON: None. FINDINGS: There is mild atherosclerosis of both carotid arteries. Peak systolic velocity (in cm/s) is detailed below RIGHT: Right common carotid artery (CCA): 92 cm/s. Right internal carotid artery (ICA) PSV: 98 cm/s. Right ICA end-diastolic velocity (EDV): 20 cm/s. Right ICA/CCA PSV ratio is 1.1. Right external carotid artery (ECA): 75cm/s. There is antegrade flow in the right vertebral artery LEFT: Left common carotid artery (CCA): 115 cm/s. Left internal carotid artery (ICA) PSV: 85 cm/s. Left ICA end-diastolic velocity (EDV): 14 cm/s. Left ICA/CCA PSV ratio is 0.7. Left external carotid artery (ECA): 89cm/s. There is antegrade flow in the left vertebral artery. IMPRESSION: 1. Less than 50% stenosis in the right internal carotid artery. 2. Less than 50% stenosis in the left internal carotid artery. Reviewed, dictated and finalized at location A.
--- OUTSIDE RECORDS SUMMARY | 2025-05-01 13:26 | XMS_ITS | Clinical Summary ---
Author Organization [facility] Address [address] [place] [address] Phone Care Team Providers Care Cash Shortage Investigator Name Role Phone Juan Carlos Maier MD Primary Care Provider Medications omeprazole (PriLOSEC) 20 MG CAPSULE DELAYED RELEASE Take 20 mg by mouth daily. 12/11/2024 Active metoprolol Succinate (TOPROL-XL) 25 MG TABLET SR 24 HR Take 12.5 mg by mouth daily. 12/07/2024 Active losartan (COZAAR) 50 MG Tablet take 1 and 1/2 tablet by mouth every day 12/07/2024 Active atorvastatin (LIPITOR) 20 MG Tablet Take 20 mg by mouth daily. 12/12/2024 Active furosemide (LASIX) 20 MG Tablet 11/27/2024 Active metFORMIN (GLUCOPHAGE) 500 MG Tablet Take 500 mg by mouth 2 times daily. 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 Gender Identity Not on file Sexual Orientation Not on file Plan of Treatment Upcoming Encounters Date Type Department Care Team (Late st Contact Info) Description 08/05/2025 3:00 PM CDT [facility] [address] [place] [address] Jose David Montoya MD [address] [place] [address] Health Maintenance Due Date Last Done Comments Respiratory Syncytial Virus (RSV) Immunization (Adult) (1 - 1-dose 75+ series) 2021 Influenza Immunization (#1) 07/01/202507/01, 07/15/2023, 08/06/2022, Additional history exists Hepatitis C Virus (HCV) Screening Completed 01/22/2008 TdaP Immunization Completed 09/02/2021 Zoster Immunization Completed 05/26/2022, 09/02/2021, 07/01/2014 Pneumococcal Immunization (50+ years) Completed 02/07/2024, 08/16/2017 SARS-COV-2 Immunization Completed 01/08/20, 07/10/2024, 01/30/2024, Additional history exists Hepatitis B Immunization Aged Out No longer eligible based on patient's age to complete this topic Human Papillomavirus (HPV) Immunization Aged Out No longer eligible based on patient's age to complete this topic Meningococcal Immunization (ACWY) Aged Out No longer eligible based on patient's age to complete this topic Rotavirus Immunization Aged Out No lo nger eligible based on patient's age to complete this topic Procedures Procedure Name Priority Date/Time Associated Diagnosis Comments ACUTE HEPATITIS PANEL Routine 01/22/2008 5:57 PM CDT from Last 3 Months or Most Recently Relevant to Health Maintenance Results * LAB-HEPATITIS PANEL, ACUTE (01/22/2008 5:57 PM CDT) HEPATITIS A IGM ANTIBODY NON DETECTED [facility] Comment: IGM ANTIBODIES TO HAV NOT DETECTED, DOES NOT EXCLUDE EARLY ACUTE OR RECOVERED HAV INFECTION. HEP B CORE AB (IGM) NON DETECTED [facility] Comment: IGM ANTI-HBC NOT DETECTED. DOES NOT EXCLUDE THE POSSIBILITY OF EXPOSURE TO OR INFECTION WITH HBV. HEPATITIS B SURFACE ANTGEN NON DETECTED [facility] hepatitis C antibody NON DETECTED [facility] Comment: ANTIBODIES TO HCV NOT DETECTED: DOES NOT EXCLUDE EARLY ACUTE HCV INFECTION. 01/22/2008 5:57 PM CDT 01/22/2008 5:57 PM CDT us Noman Babcock DO CHG - LABORATORY Edited [facility] [address] [place] [address] from Last 3 Months or Most Recently Relevant to Health Maintenance Insurance MEDICARE Care Teams Cash Shortage Investigator Relationship Specialty Start Date End Date Juan Carlos Maier MD [address] [place] [address] PCP - General Pediatrics 02/18/25
--- OUTSIDE RECORDS SUMMARY | 2025-05-01 13:26 | XMS_ITS | Clinical Summary ---
Author Organization [facility] Address [facility] [place] [address] Care Team Providers Care Medical Assistant Instructor Name Role Phone Brendon Mathews MD Primary Care Provider [phone] Allergies Active Allergy Reactions Criticality Noted Date [...] Essential hypertension 08/22/2020 Mixed hyperlipidemia 08/22/2020 Immunizations Immunization Administration Dates Next Due Fluzone High Dose (IIV, trivalent, 0.5mL) 2023,07/14/2017 Fluzone High Dose - >Age 65 (Prefilled Syringe) 07/15/2023,08/06/2022,07/31/2021 Influenza (Generic) 08/21/2015,08/10/2014,2011 PFIZER COVID-19 (12+) MRNA, LNP-S, PF, ANNABEL-SUCROSE, 30 MCG/0.3 ML (COMIRNATY) 07/10/2024,01/30/2024 PFIZER COVID-19 (GOODSON CAP), MRNA, LNP-S, PF, 30 MCG/0.3 ML ANNABEL-SUCROSE, IM 02/12/2022 Pneumococcal (Prevnar 13) 08/16/2017 Pneumococcal (Prevnar 20) 02/07/2024 Shingrix 05/26/2022,09/02/2021 Tdap (Generic) 09/02/2021 Zoster (Zostavax) 73599 Unt/0.65Ml 07/01/2014 Family History Medical History Relation [...] on file 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 Gender Identity Not on file Sexual Orientation Not on file Last Filed Vital Signs Vital Sign Reading Time Taken Comments Blood Pressure 180/63 09/20/2023 9:38 AM TYPEWRITER RIBBON WINDER Pulse 55 09/20/2023 9:38 AM TYPEWRITER RIBBON WINDER Temperature 36.2 C (97.1 F) 09/20/2023 9:38 AM TYPEWRITER RIBBON WINDER Respiratory Rate 18 09/20/2023 9:38 AM TYPEWRITER RIBBON WINDER Oxygen Saturation 100% 09/20/2023 9:38 AM TYPEWRITER RIBBON WINDER Inhaled Oxygen Concentration - - Weight 93 kg (205 lb) 09/12/2023 9:38 AM TYPEWRITER RIBBON WINDER Height 175.3 cm (5' 9) 09/12/2023 9:38 AM TYPEWRITER RIBBON WINDER Body Mass Index 30.27 09/12/2023 9:38 AM TYPEWRITER RIBBON WINDER Plan of Treatment Health Maintenance Due Date [...] (10 Years) Discontinued 09/20/2023, 09/20/2023 Pneumococcal Vaccine: 50+ Years Completed 02/07/2024, 08/16/2017 Meningococcal B Vaccine [...] Associated Diagnosis Comments COLONOSCOPY 09/20/2023 6:49 AM TYPEWRITER RIBBON WINDER from Last 3 Months or Most Recently Relevant to Health Maintenance Results * Colonoscopy (09/20/2023 6:49 AM TYPEWRITER RIBBON WINDER) Silvestre Ogden MD GI PROCEDURE ORDERABLES Final Result from Last 3 Months or Most Recently Relevant to Health Maintenance Insurance [employer] * Guarantor: Andre Vazquez Account Type Relation to Patient Date of Phone Billing Address Personal/Family Self 1945 [address] [place] [address] [employer] Care Teams Medical Assistant Instructor Relationship Specialty Start Date End Date Brendon Mathews MD [facility] [place] [phone] PCP - General FAMILY PRACTICE 07/14/20
--- OUTSIDE RECORDS SUMMARY | 2025-05-01 13:26 | XMS_ITS | Encounter Summary ---
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 No / Unsure 08/07/2020 9:51 AM CDT documented as of this encounter Functional Status documented as of this encounter Plan of Treatment Not on file documented as of this encounter Visit Diagnoses Not on filedocumented in this encounter Care Teams Cathode Builder Relationship Specialty Start Date End Date Brendon Mathews MD [address] [place] [address] PCP - General FAMILY PRACTICE 07/14/20 documented as of this encounter
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
== END 2025-05-01 13:24 | disposition home or self-care (01) ==
PROVIDERS: PCP Family Medicine; Visit Provider Family Medicine
DX: R42 Dizziness and giddiness (principal); I65.23 Occlusion and stenosis of bilateral carotid arteries
CPT/HCPCS: 93880

== ENCOUNTER 2025-05-07 12:43 | Outpatient (CLI) | payer MEDICARE, OTHER, SELFPAY ==
--- OUTSIDE RECORDS SUMMARY | 2025-05-07 12:47 | XMS_ITS | Encounter Summary ---
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
--- OUTSIDE RECORDS SUMMARY | 2025-05-07 12:47 | XMS_ITS | Clinical Summary ---
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 Gender Identity Not on file Sexual Orientation Not on file Last Filed Vital Signs Vital Sign Reading Time Taken Comments Blood Pressure 180/63 09/20/2023 9:38 AM STRESS ENGINEER Pulse 55 09/20/2023 9:38 AM STRESS ENGINEER Temperature 36.2 C (97.1 F) 09/20/2023 9:38 AM STRESS ENGINEER Respiratory Rate 18 09/20/2023 9:38 AM STRESS ENGINEER Oxygen Saturation 100% 09/20/2023 9:38 AM STRESS ENGINEER Inhaled Oxygen Concentration - - Weight 93 kg (205 lb) 09/12/2023 9:38 AM STRESS ENGINEER Height 175.3 cm (5' 9) 09/12/2023 9:38 AM STRESS ENGINEER Body Mass Index 30.27 09/12/2023 9:38 AM STRESS ENGINEER Plan of Treatment Health Maintenance Due Date [...] Associated Diagnosis Comments COLONOSCOPY 09/20/2023 6:49 AM STRESS ENGINEER from Last 3 Months or Most Recently Relevant to Health Maintenance Results * Colonoscopy (09/20/2023 6:49 AM STRESS ENGINEER) Silvestre Ogden MD GI PROCEDURE ORDERABLES Final Result from Last 3 Months or Most Recently Relevant to Health Maintenance Insurance [employer] * Guarantor: Andre Vazquez Account Type Relation to Patient Date of Phone Billing Address Personal/Family Self 1945 [address] [place] [address] [employer] Care Teams Director Medical Relationship Specialty Start Date End Date Brendon Mathews MD [facility] [place] [id number] PCP - General FAMILY PRACTICE 07/14/20
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
--- NOTE | 2025-05-30 10:07 | WPDHOLTEREM ---
Holter/Event Monitor Holter/Event Monitor Date of procedure: 05/07/25 Holter/Event Procedure: Event Monitor Indications: Dizziness Conclusion: 1. 13 days event monitor on 05/07/25. 2. Predominant rhythm is sinus rhythm. HR range 48-145 bpm; average 68 bpm. HR at 48 bpm was on 05/19/25 at 2:17 am. 3. There are rare premature supraventricular complexes, rare supraventricular couplets, and rare supraventricular triplets. There are 8 episodes of supraventricular tachycardia with fastest at 145 bpm and longest lasting 9 beats. 4. There are rare premature ventricular complexes, rare ventricular couplets, rare ventricular triplets and longest ventricular bigeminy is 11.9 seconds. There are 7 episodes of ventricular tachycardia with fastest at 145 bpm and longest lasting 16.9 seconds. 5. No significant pauses greater than 3 seconds. 6. No symptoms available for correlation.
== END 2025-05-07 12:44 | disposition home or self-care (01) ==
LOC: CHSCARD 12:45
PROVIDERS: PCP Family Medicine; Visit Provider Family Medicine
DX: R42 Dizziness and giddiness (principal)
CPT/HCPCS: 93270

== ENCOUNTER 2025-06-04 11:13 | Emergency (ER) | payer MEDICARE, OTHER, SELFPAY ==
[2025-06-04] VITALS (14 sets, daily range): BP systolic 143–166; BP diastolic 69–83; PULSE 52–74; RESP 17–30; TEMP 36.6; O2SAT 96–99
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
--- NOTE | 2025-06-04 11:21 | ECG_ITS ---
Test Date: 2025-06-04 11:19:42 Measurements Intervals [place] Rate: 54 P: 40 NH: 169 QRS: -32 QRSD: 169 T: 55 QT: 485 QTc: 461 Interpretive Statements SINUS BRADYCARDIA WITH OCCASIONAL VENTRICULAR PREMATURE COMPLEXES LEFT AXIS DEVIATION LEFT BUNDLE BRANCH BLOCK ABNORMAL ECG Compared to ECG 02/01/2025 11:51:36 HEART RATE HAS DECREASED Electronically Signed On 06-04-2025 11:28:51 CDT by Myke Amin D.O.
--- NOTE | 2025-06-04 11:21 | ED_ITS ---
HPI - Chest Pain General Chief Complaint: Extremity Problem,Nontraumatic Stated Complaint: left shoulder pain Time Seen by Provider: 06/04/25 11:21 Source: patient and family Mode of arrival: ambulatory Limitations: no limitations History of Present Illness HPI narrative: patient referred to our emergency room from his family physician office with left shoulder pain, dull aching, stabbing, constant for the last 3 days. is telling me that patient had a lot of work at the backyard over the last few days including lifting, gardening and weeding. Pain worse with certain movement, nothing make it better, steady for the last 3 days. He denies any chest pain or shortness of breath or back pain or trauma Patient denies any fever, chills, nausea, vomiting Related Data Home Medications ?Medication ?Instructions ?Recorded ?Confirmed ?Last Taken ?Type atorvastatin 20 mg tablet 20 mg PO QPM 11/26/24 06/04/25 Unknown History losartan 50 mg tablet 50 mg PO DAILY 11/26/24 06/04/25 Unknown History metformin 500 mg tablet 500 mg PO DAILY 11/26/24 06/04/25 Unknown History metoprolol succinate 25 mg 25 mg PO DAILY 11/26/24 06/04/25 Unknown History tablet,extended release 24 hr omeprazole 20 mg capsule,delayed 20 mg PO DAILY 11/26/24 06/04/25 Unknown History release dapagliflozin propanediol 5 mg 5 mg PO DAILY 06/04/25 06/04/25 Unknown History tablet (Farxiga) donepezil 5 mg tablet 5 mg PO DAILY 06/04/25 06/04/25 Unknown History Allergies Allergy/AdvReac Type Severity Reaction Status Date / Time No Known Allergies Allergy Verified 06/04/25 11:17 Review of Systems 2 Review of Systems: All systems reviewed & are unremarkable except as noted in HPI and below PMFSH Past Medical History Medical History Diabetes Exam 2 Narrative: General appearance: Well-developed, well-nourished Skin: Normal color Head: Normocephalic, nontraumatic Eyes: Clear conjunctiva ENT: Oropharynx normal, ears normal, nose normal Neck: Supple, nontender Chest and respiratory: Airway patent, no respiratory distress, no accessory muscle use Heart: Regular rate/rhythm Abdomen: Soft, nontender, no organomegaly, quiet bowel sounds Vascular: Normal peripheral pulses, normal capillary refill. Musculoskeletal: left shoulder exam showed diffuse tenderness suprascapular, scapular, deltoid,left upper chest and diffuse tenderness of the shoulder, slight limited range of motion because of pain otherwise no swelling, no bruises or deformity Neurologic: Alert and oriented ?3, FELT CUTTER is normal as tested, no gross motor deficit Course Vital Signs Vital signs: Vital Signs Temperature 36.6 C 06/04/25 11:14 Pulse Rate 74 06/04/25 11:14 Respiratory Rate 18 06/04/25 11:14 Blood Pressure 163/75 H 06/04/25 11:14 Pulse Oximetry 99 06/04/25 11:14 Oxygen Delivery Room Air 06/04/25 11:14 Temperature 36.6 C 06/04/25 11:14 Pulse Rate 53 L 06/04/25 12:16 Respiratory Rate 20 06/04/25 12:16 Blood Pressure 150/75 H 06/04/25 12:16 Pulse Oximetry 98 06/04/25 12:16 Oxygen Delivery Room Air 06/04/25 11:14 MDM - Chest Pain MDM Narrative Medical decision making narrative: patient presents with left shoulder pain Vital signs are stable Physical examination consistent with diffuse tenderness of the shoulder and the surrounding muscles anteriorly and posteriorly Differential diagnosis shoulder sprain, strain secondary to backyard extensive work over the last few days EKG on arrival showed normal sinus rhythm, left bundle-branch block, abnormal EKG Chest x-ray showed no acute abnormality, Left shoulder x-ray showed no acute abnormality Blood workup today includes CBC, CMP a troponin showed no significant abnormality Patient's symptom improved after taking [place] and ibuprofen in the ED. Diagnosis left shoulder sprain/ strain The pt was discharged to home.the pt,s condition upon discharge was fair,education was provided to the pt in reference to the final impression,discharge study results,treatment,prognosis and need for follow up . Differential Diagnosis Differential diagnosis: Likely other (Left shoulder sprain/strain) Medical Records Data Attestation: I reviewed the patient's medical records. Lab Data Attestation: I reviewed the patient's lab results. 06/04/25 11:36 06/04/25 11:36 Labs: Lab Results 06/04/25 Range/Units 11:36 WBC 8.7 (4.8-10.8) K/mm3 RBC 4.98 (4.70-6.10) M/mm3 Hgb 15.0 (12.4-15.3) g/dL Hct 44.7 (37.0-46.0) % MCV 89.8 (78.0-102.0) fL MCH 30.1 (27.0-31.0) pg MCHC 33.6 (32-36) g/dL RDW 12.1 (11.6-14.4) % Plt Count 231 (150-420) K/mm3 MPV 10.2 (8.7-11.0) fl Immature Gran % (Auto) 0.2 H (0.0-0.0) % Neut % (Auto) 61.1 (50.0-70.0) % Lymph % (Auto) 29.7 (18.0-42.0) % [place] % (Auto) 6.6 (2.0-11.0) % Eos % (Auto) 2.1 (1.0-6.0) % Baso % (Auto) 0.3 (0.0-1.0) % Lymph # (Auto) 2.58 (1.10-4.50) K/mm3 [place] # (Auto) 0.57 (0.10-0.90) K/mm3 Eos # (Auto) 0.18 (0.02-0.50) K/mm3 Baso # (Auto) 0.03 (0.00-0.10) K/mm3 Abs Immat Gran (auto) 0.02 H (0.00-0.00) K/mm3 Absolute Neuts (auto) 5.31 (1.70-7.20) K/mm3 Absolute Nucleated RBC 0.00 (0.00-0.00) K/mm3 Nucleated RBC % 0.0 (0-0.0) % Sodium 138 (137-145) mmol/L Potassium 4.5 (3.4-5.0) mmol/L Chloride 109 H (98-107) mmol/L Carbon Dioxide 26 (22-30) mmol/L Anion Gap 3 L (4-12) mmol/L BUN 20 (9-20) mg/dL Creatinine 1.18 (0.7-1.3) mg/dL Estim Creat Clear Calc 47 ml/min Estimated GFR 60 (59 - ) Glucose 150 H (65-110) mg/dL Calculated Osmolality 291 (285-295) mOsm/kg Calcium 10.1 (8.4-10.2) mg/dL Total Bilirubin 0.5 (0.2-1.3) mg/dL AST 30 (17-59) U/L ALT 24 (6-50) U/L Alkaline Phosphatase 66 (38-126) U/L Troponin I < 0.012 (0.000-0.034) ng/mL Total Protein 6.8 (6.3-8.2) g/dL Albumin 4.3 (3.5-5.1) g/dL Imaging Data Radiologist's impression: Impressions Chest X-Ray 06/04/25 11:45 Impression: 1: No acute cardiopulmonary disease. 2: Mild chronic interstitial lung disease. Shoulder X-Ray 06/04/25 11:47 Impression: 1: Mild polyarticular osteoarthritis. ECG Data EKG #1: Attestation: I personally reviewed and interpreted this ECG as follows: ECG completion date: 06/04/25 Prior ECG tracings: available for review Interpretation: sinus bradycardia at 54 beats per minute, left axis deviation, left bundle- branch block, abnormal EKG, compared to EKG on February 01, 2025 heart rate has decreased Critical Care Time Critical Care Time Critical Care Time: No Discharge Plan Discharge Clinical Impression: Acute pain of left shoulder Patient Disposition: Home Condition: Improved Instructions: Shoulder Pain (ED) Additional Instructions: Return if symptoms are worsening , call your family physician for appointment, take Tylenol as as needed for aches and pain, continue home medications. Rest Ice Ibuprofen 600 every 6 hours as needed Physical therapy Patient Language: Belizean Prescriptions: No Action donepezil 5 mg tablet 5 mg PO DAILY dapagliflozin propanediol [Farxiga] 5 mg tablet 5 mg PO DAILY atorvastatin 20 mg tablet 20 mg PO QPM losartan 50 mg tablet 50 mg PO DAILY metformin 500 mg tablet 500 mg PO DAILY metoprolol succinate 25 mg tablet extended release 24 hr 25 mg PO DAILY omeprazole 20 mg capsule,delayed release(DR/EC) 20 mg PO DAILY Follow-up/Referrals: Juan Carlos Maier MD [Primary Care Provider] - Quality HEART score for chest pain patients History: slightly suspicious ECG: normal Age: > or = to 65 years Risk factors: 1 or 2 risk factors Troponin: < or = to 1x normal limit Heart score: 3
--- OUTSIDE RECORDS SUMMARY | 2025-06-04 11:39 | XMS_ITS | Encounter Summary ---
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
--- OUTSIDE RECORDS SUMMARY | 2025-06-04 11:39 | XMS_ITS | Clinical Summary ---
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 Gender Identity Not on file Sexual Orientation Not on file Last Filed Vital Signs Vital Sign Reading Time Taken Comments Blood Pressure 180/63 09/20/2023 9:38 AM GRINDING MACHINE OPERATOR Pulse 55 09/20/2023 9:38 AM GRINDING MACHINE OPERATOR Temperature 36.2 C (97.1 F) 09/20/2023 9:38 AM GRINDING MACHINE OPERATOR Respiratory Rate 18 09/20/2023 9:38 AM GRINDING MACHINE OPERATOR Oxygen Saturation 100% 09/20/2023 9:38 AM GRINDING MACHINE OPERATOR Inhaled Oxygen Concentration - - Weight 93 kg (205 lb) 09/12/2023 9:38 AM GRINDING MACHINE OPERATOR Height 175.3 cm (5' 9) 09/12/2023 9:38 AM GRINDING MACHINE OPERATOR Body Mass Index 30.27 09/12/2023 9:38 AM GRINDING MACHINE OPERATOR Plan of Treatment Health Maintenance Due Date [...] Associated Diagnosis Comments COLONOSCOPY 09/20/2023 6:49 AM GRINDING MACHINE OPERATOR from Last 3 Months or Most Recently Relevant to Health Maintenance Results * Colonoscopy (09/20/2023 6:49 AM GRINDING MACHINE OPERATOR) Silvestre Ogden MD GI PROCEDURE ORDERABLES Final Result from Last 3 Months or Most Recently Relevant to Health Maintenance Insurance [employer]ARE [employer] * Guarantor: Andre Vazquez Account Type Relation to Patient Date of Phone Billing Address Personal/Family Self 1945 [address] [place] [address] [employer] Care Teams Front Tender Relationship Specialty Start Date End Date Brendon Mathews MD [facility] [place] [phone] PCP - General FAMILY PRACTICE 07/14/20
--- OUTSIDE RECORDS SUMMARY | 2025-06-04 11:39 | XMS_ITS | Clinical Summary ---
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 HEP B CORE AB (IGM) NON DETECTED [facility] Comment: IGM ANTI-HBC NOT DETECTED. DOES NOT EXCLUDE THE POSSIBILITY OF EXPOSURE TO OR INFECTION WITH HBV. HEPATITIS B SURFACE ANTGEN NON DETECTED [facility] hepatitis C antibody NON DETECTED [facility] Comment: ANTIBODIES TO HCV NOT DETECTED: DOES NOT EXCLUDE EARLY ACUTE HCV INFECTION. 01/22/2008 5:57 PM CDT 01/22/2008 5:57 PM CDT us Noman Babcock DO CHG - LABORATORY Edited [facility] [address] [place] [address] from Last 3 Months or Most Recently Relevant to Health Maintenance Insurance MEDICARE Care Teams Asphalt Paver Operator Relationship Specialty Start Date End Date Juan Carlos Maier MD [address] [place] [address] PCP - General Pediatrics 02/18/25
[2025-06-04 11:40] LABS: Hematocrit 44.7 % (37.0-46.0); Hemoglobin 15.0 g/dL (12.4-15.3); Immature Granulocyte Percent A 0.2 % (0.0-0.0); Lymphocytes Absolute Auto 2.58 K/mm3 (1.10-4.50); Mean Corpuscular HGB Conc 33.6 g/dL (32-36); Mean Corpuscular Hemoglobin 30.1 pg (27.0-31.0); Mean Corpuscular Volume 89.8 fL (78.0-102.0); Nucleated Red Blood Cells Absolute Auto 0.00 K/mm3 (0.00-0.00); Nucleated Red Blood Cells Perc 0.0 % (0-0.0); Platelet Count Result 231 K/mm3 (150-420); Red Blood Count 4.98 M/mm3 (4.70-6.10); White Blood Count 8.7 K/mm3 (4.8-10.8)
[2025-06-04] MEDS: HYDROcodone/acetaminophen (*CRX) 5-325 MG TABLET 1 TAB PO (11:46)
[2025-06-04 11:52] LABS: Alanine Aminotransferase 24 U/L (6-50); Albumin Level 4.3 g/dL (3.5-5.1); Alkaline Phosphatase 66 U/L (38-126); Anion Gap 3 mmol/L (4-12); Aspartate Amino Transferase 30 U/L (17-59); Bilirubin,Total 0.5 mg/dL (0.2-1.3); Blood Urea Nitrogen 20 mg/dL (9-20); Calcium 10.1 mg/dL (8.4-10.2); Carbon Dioxide 26 mmol/L (22-30); Chloride 109 mmol/L (98-107); Estimated CRCL calculation 47 ml/min; Estimated Glomerular Filt Rate 60; Glucose 150 mg/dL (65-110); Osmolality Calculated 291 mOsm/kg (285-295); Potassium 4.5 mmol/L (3.4-5.0); Sodium 138 mmol/L (137-145); Total Protein 6.8 g/dL (6.3-8.2)
--- OUTSIDE RECORDS SUMMARY | 2025-06-04 12:02 | XMS_ITS | Clinical Summary ---
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 HEP B CORE AB (IGM) NON DETECTED [facility] Comment: IGM ANTI-HBC NOT DETECTED. DOES NOT EXCLUDE THE POSSIBILITY OF EXPOSURE TO OR INFECTION WITH HBV. HEPATITIS B SURFACE ANTGEN NON DETECTED [facility] hepatitis C antibody NON DETECTED [facility] Comment: ANTIBODIES TO HCV NOT DETECTED: DOES NOT EXCLUDE EARLY ACUTE HCV INFECTION. 01/22/2008 5:57 PM CDT 01/22/2008 5:57 PM CDT us Noman Babcock DO CHG - LABORATORY Edited [facility] [address] [place] [address] from Last 3 Months or Most Recently Relevant to Health Maintenance Insurance MEDICARE Care Teams Automatic Serging Machine Operator Relationship Specialty Start Date End Date Juan Carlos Maier MD [address] [place] [address] PCP - General Pediatrics 02/18/25
--- OUTSIDE RECORDS SUMMARY | 2025-06-04 12:02 | XMS_ITS | Encounter Summary ---
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
--- OUTSIDE RECORDS SUMMARY | 2025-06-04 12:02 | XMS_ITS | Clinical Summary ---
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 Gender Identity Not on file Sexual Orientation Not on file Last Filed Vital Signs Vital Sign Reading Time Taken Comments Blood Pressure 180/63 09/20/2023 9:38 AM CORE INSPECTOR Pulse 55 09/20/2023 9:38 AM CORE INSPECTOR Temperature 36.2 C (97.1 F) 09/20/2023 9:38 AM CORE INSPECTOR Respiratory Rate 18 09/20/2023 9:38 AM CORE INSPECTOR Oxygen Saturation 100% 09/20/2023 9:38 AM CORE INSPECTOR Inhaled Oxygen Concentration - - Weight 93 kg (205 lb) 09/12/2023 9:38 AM CORE INSPECTOR Height 175.3 cm (5' 9) 09/12/2023 9:38 AM CORE INSPECTOR Body Mass Index 30.27 09/12/2023 9:38 AM CORE INSPECTOR Plan of Treatment Health Maintenance Due Date [...] Associated Diagnosis Comments COLONOSCOPY 09/20/2023 6:49 AM CORE INSPECTOR from Last 3 Months or Most Recently Relevant to Health Maintenance Results * Colonoscopy (09/20/2023 6:49 AM CORE INSPECTOR) Silvestre Ogden MD GI PROCEDURE ORDERABLES Final Result from Last 3 Months or Most Recently Relevant to Health Maintenance Insurance [employer] * Guarantor: Andre Vazquez Account Type Relation to Patient Date of Phone Billing Address Personal/Family Self 1945 [address] [place] [address] [employer] Care Teams Community Living Specialist Relationship Specialty Start Date End Date Brendon Mathews MD [facility] [place] [id number] PCP - General FAMILY PRACTICE 07/14/20
[2025-06-04 12:03] LABS: Troponin I < 0.012 ng/mL (0.000-0.034)
== END 2025-06-04 12:42 | disposition home or self-care (01) ==
PROVIDERS: Emergency Provider Emergency Medicine; PCP Family Medicine
DX: M25.512 Pain in left shoulder (principal); E11.9 Type 2 diabetes mellitus without complications; Z79.899 Other long term (current) drug therapy; Z79.84 Long term (current) use of oral hypoglycemic drugs
CPT/HCPCS: 36415; 71045; 73030; 80053; 84484; 85025; 93005; 99284; A9270

== ENCOUNTER 2025-06-26 15:12 | Outpatient (RCR) | payer MEDICARE, OTHER, SELFPAY ==
--- NOTE | 2025-06-26 16:17 | OPREHPOC ---
Outpatient Therapy Plan of Care This is a Multidisciplinary Plan of Care that may contain components documented by all disciplines (PT, OT, and ST.) PT Problem 1 PT Problem #1 Knowledge Deficit PT Goal 1 Goal / Goal Update Independent and compliant with HEP. Target Visit 2 PT Problem 2 PT Problem #2 Impaired Range of Motion PT Goal 1 Goal / Goal Update Pt to achieve full pain-free active ROM of the L shoulder. Target Visit 8 PT Problem 3 PT Problem #3 Impaired Strength PT Goal 1 Goal / Goal Update Pt to improve L shoulder strength to 5/5 without pain. 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 Target Visit 8 PT Problem 4 PT Problem #4 Impaired Functional Mobility PT Goal 1 Goal / Goal Update Pt to note reduction of numbness/tingling in the thumb. Pt to note improved ability to reach overhead, behind his back, and lift objects for improved ability to perform daily functional tasks. Pt to report 20% or less perceived disability on Quick DASH. Target Visit 8
--- NOTE | 2025-06-26 16:17 | PTOPEVAL1 ---
Assessment and note entered by Yudy Chin, PT Evaluation Information Assessment Status Evaluation ICD-10 Condition Codes (PT) Pain in left shoulder M25.512 Onset 02/24/2025 Subjective Information Pt reports his shoulder started bothering him around 4 months ago and now he's having numbness and tingling down to his thumb. He's taken medication and seen his doctor for it but he reports they wanted him to do therapy. He reports he has trouble sleeping especially when lying on his L side. He also notes difficulty carrying things in his L hand. Reported Pain Level Pain Score 5: Self Report Assessment PT Clinical Summary Mr. Salguero is a 79 yo male who presents for skilled PT evaluation for L shoulder pain and numbness/tingling into his thumb. He demonstrates mild impairments in L shoulder AROM and strength as well as pain with active and resisted flexion and abduction. Special tests are positive for rotator cuff tendonitis and secondary impingement. Cervical screen was negative for radiculopathy however pt did demonstrate positive testing for carpal tunnel syndrome on the L along with moderate deficits in L hand mini bar attendant strength. He will benefit from skilled PT intervention to address these deficits to improve strength and functional use of the arm for functional ADLs such as reaching and lifting. Plan of Care Interventions Electrical Stimulation,Hot Pack/Cold Pack,Manual Therapy,Neuro Re-education,Patient/Caregiver Education,Therapeutic Activities,Therapeutic Exercise,Self-Care/Home Management PT Services Indicated Yes Treatment Frequency and 2x/week for 8 visits Duration These treatments will address the objective and functional deficits as defined above. The patient will be advanced safely and appropriately in order for the patient to progress towards his/her prior level of function. Additional exercises will be introduced and as well as a comprehensive home exercise program upon discharge, if needed, ?to ensure carryover of functional gains achieved in the clinic. This treatment plan has been reviewed and agreement upon by the patient.
== END 2025-09-24 23:59 | disposition home or self-care (01) ==
LOC: CHSPT 15:12
PROVIDERS: PCP Family Medicine; Visit Provider Family Medicine
DX: M25.512 Pain in left shoulder (principal)
CPT/HCPCS: 36415; 80053; 82043; 83036; 85025; 97110; 97150; 97161; 97530

== ENCOUNTER 2025-09-04 13:29 | Outpatient (CLI) | payer MEDICARE, OTHER, SELFPAY ==
[2025-09-04 13:32] LABS: Hematocrit 42.6 % (37.0-46.0); Hemoglobin 14.2 g/dL (12.4-15.3); Immature Granulocyte Percent A 0.4 % (0.0-0.0); Lymphocytes Absolute Auto 2.73 K/mm3 (1.10-4.50); Mean Corpuscular HGB Conc 33.3 g/dL (32-36); Mean Corpuscular Hemoglobin 30.3 pg (27.0-31.0); Mean Corpuscular Volume 90.8 fL (78.0-102.0); Nucleated Red Blood Cells Absolute Auto 0.00 K/mm3 (0.00-0.00); Nucleated Red Blood Cells Perc 0.0 % (0-0.0); Platelet Count Result 225 K/mm3 (150-420); Red Blood Count 4.69 M/mm3 (4.70-6.10); White Blood Count 8.5 K/mm3 (4.8-10.8)
[2025-09-04 13:41] LABS: Alanine Aminotransferase 26 U/L (6-50); Albumin Level 4.5 g/dL (3.5-5.1); Alkaline Phosphatase 73 U/L (38-126); Anion Gap 8 mmol/L (4-12); Aspartate Amino Transferase 32 U/L (17-59); Bilirubin,Total 1.5 mg/dL (0.2-1.3); Blood Urea Nitrogen 21 mg/dL (9-20); Calcium 9.6 mg/dL (8.4-10.2); Carbon Dioxide 28 mmol/L (22-30); Chloride 106 mmol/L (98-107); Estimated Glomerular Filt Rate 57; Glucose 113 mg/dL (65-110); Osmolality Calculated 298 mOsm/kg (285-295); Potassium 4.6 mmol/L (3.4-5.0); Sodium 142 mmol/L (137-145); Total Protein 7.0 g/dL (6.3-8.2)
[2025-09-04 13:45] LABS: Hemoglobin A1C 6.2 % (<5.7)
[2025-09-04 13:46] LABS: MALB Creatinine Ratio 10.3 mg/g (0-30)
--- OUTSIDE RECORDS SUMMARY | 2025-09-05 12:42 | XMS_ITS | Encounter Summary ---
Author Organization 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
--- OUTSIDE RECORDS SUMMARY | 2025-09-05 12:42 | XMS_ITS | Clinical Summary ---
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 Gender Identity Not on file Sexual Orientation Not on file Last Filed Vital Signs Vital Sign Reading Time Taken Comments Blood Pressure 180/63 09/20/2023 9:38 AM DOUGHNUT MAKER Pulse 55 09/20/2023 9:38 AM DOUGHNUT MAKER Temperature 36.2 C (97.1 F) 09/20/2023 9:38 AM DOUGHNUT MAKER Respiratory Rate 18 09/20/2023 9:38 AM DOUGHNUT MAKER Oxygen Saturation 100% 09/20/2023 9:38 AM DOUGHNUT MAKER Inhaled Oxygen Concentration - - Weight 93 kg (205 lb) 09/12/2023 9:38 AM DOUGHNUT MAKER Height 175.3 cm (5' 9) 09/12/2023 9:38 AM DOUGHNUT MAKER Body Mass Index 30.27 09/12/2023 9:38 AM DOUGHNUT MAKER Plan of Treatment Health Maintenance Due Date Last Done Comments Hepatitis C 1963 Annual Medicare Wellness Visit 2011 RSV Immunization or 60+ Years (1 - 1-dose 75+ series) 2021 COVID-19 Vaccine ( season) 2025 07/10/2024, 01/30/2024, 07/27/2023, Additional history exists Influenza Adult (#1) 2025 07/10/2024, 07/15/2023, 08/06/2022, Additional history exists DTaP, Tdap and Td Vaccines (2 - Td or Tdap) 09/02/2031 09/02/2021 Zoster Vaccines Completed 05/26/2022, 12/2020, 07/01/2014 Colorectal Cancer Screening Colonoscopy (10 Years) Discontinued 09/20/2023, 09/20/2023 Pneumococcal Vaccine: 50+ Years Completed 02/07/2024, 08/16/2017 Hepatitis A Vaccines Aged Out No long er eligible based on patient's age to complete this topic Meningococcal B Vaccine Aged Out No l onger eligible based on patient's age to complete this topic Meningococcal Vaccine Aged Out No katie dariel eligible based on patient's age to complete this topic RSV Immunizations Under 20 Months Aged Out No longer eligible based on patient's age to complete this topic Procedures Procedure Name Priority Date/Time Associated Diagnosis Comments COLONOSCOPY 09/20/2023 6:49 AM DOUGHNUT MAKER from Last 3 Months or Most Recently Relevant to Health Maintenance Results * Colonoscopy (09/20/2023 6:49 AM DOUGHNUT MAKER) Silvestre Ogden MD GI PROCEDURE ORDERABLES Final Result from Last 3 Months or Most Recently Relevant to Health Maintenance Insurance [employer] Care Teams Scientific Specialist Relationship Specialty Start Date End Date Brendon Mathews MD [address] [place] [phone] PCP - General FAMILY PRACTICE 07/14/20
--- OUTSIDE RECORDS SUMMARY | 2025-09-05 12:42 | XMS_ITS | Clinical Summary ---
Author Organization [facility] Address [address] [place] [address] Phone Care Team Providers Care Advice Clerk Name Role Phone Juan Carlos Maier MD Primary Care Provider [phone] Allergies No known active allergies Medications omeprazole (PriLOSEC) 20 MG CAPSULE DELAYED [...] Active Farxiga 5 MG Tablet 02/06/2025 Active donepezil (ARICEPT) 5 MG Tablet Take 1 Tablet by mouth nightly. 90 Tablet 3 08/05/2025 Active Encounters Date Type Department Care Team Description 08/28/2025 Telephone [facility] [address] [place] [address] Jose David Montoya MD 08/05/2025 3:00 PM CDT Office Visit [facility] - [address] [place] [address] Jose David Montoya MD Mild cognitive impairment (Primary Dx) Discharge Disposition: Discharged to home or Selfcare 08/05/2025 Travel from Last 3 Months Family History Relation Name Status Comments Father Mother Social History Tobacco Use Types Packs/Day Years Used Date Smoking Tobacco: Never Smokeless Tobacco: Never Tobacco Cessation:Counseling Given: Not Answered Alcohol Use Standard Drinks/Week Comments Never 0 (1 standard drink = 0.6 oz pur e alcohol) Sex and Gender Information Value Date Recorded Sex Assigned at Not on file 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 Gender Identity Not on file Sexual Orientation Not on file Last Filed Vital Signs Vital Sign Reading Time Taken Comments Blood Pressure 124/84 08/05/2025 3:21 PM CDT Pulse 56 08/05/2025 3:21 PM CDT Temperature 36.6 C (97.8 F) 08/05/2025 3:21 PM CDT Respiratory Rate 17 08/05/2025 3:21 PM CDT Oxygen Saturation 99% 08/05/2025 3:21 PM CDT Inhaled Oxygen Concentration - - Weight 85.7 kg (189 lb) 08/05/2025 3:21 PM CDT Height 175.3 cm (5' 9) 08/05/2025 3:21 PM CDT Body Mass Index 27.91 08/05/2025 3:21 PM CDT Plan of Treatment Upcoming Encounters Date Type Department Care Team (Late st Contact Info) Description 11/11/2025 11:00 AM JOB PRESS OPERATOR Office Visit [facility] [address] [place] [address] Jose David Montoya MD [address] [place] [address] Health Maintenance Due Date Last Done Comments Medicare Initial AWV [id number] 07/31/2012 Respiratory Syncytial Virus (RSV) Immunization (Adult) (1 - 1-dose 75+ series) 2021 SARS-COV-2 Immunization (2024- season) 2026 07/05/2025, 01/07/2025, 07/10/2024, Additional history exists Hepatitis C Virus (HCV) Screening Completed 01/22/2008 TdaP Immunization Completed 09/02/2021 Zoster Immunization Completed 05/26/2022, 09/02/2021, 07/01/2014 Pneumococcal Immunization (50+ years) Completed 02/07/2024, 08/16/2017 Influenza Immunization Completed , 07/10/2024, 07/15/2023, Additional history exists Hepatitis B Immunization Aged [...] Procedure Name Priority Date/Time Associated Diagnosis Comments THYROID STIMULATING HORMONE (TSH) Routine 08/07/2025 12:00 AM CDT Mild cognitive impairment CMP (COMPREHENSIVE METABOLIC PANEL) Routine 08/07/2025 12:00 AM CDT Mild cognitive impairment LAB - MISCELLANEOUS 08/07/2025 1 2:00 AM CDT FOLIC ACID (FOLATE) 08/07/2025 1 2:00 AM CDT VITAMIN B12 08/07/2025 12:00 AM CDT COMPLETE BLOOD COUNT (CBC) WITH DIFF 08/07/2025 12:00 AM CDT ACUTE HEPATITIS PANEL Routine 01/22/2008 5:57 PM CDT from Last 3 Months or Most Recently Relevant to Health Maintenance Results * LAB - MISCELLANEOUS (08/07/2025 12:00 AM CDT) 08/07/2025 us Provider Scan CHEMISTRY ORDERABLES Final Resul t SCAN * VITAMIN B12 (08/07/2025 12:00 AM CDT) 08/07/2025 us Provider Scan CHEMISTRY ORDERABLES Final Resul t SCAN * THYROID STIMULATING HORMONE (TSH) (08/07/2025 12:00 AM CDT) Blood Result [facility] Jose David Montoya MD CHEMISTRY ORDERABLES Final R esult Performing Organization Address City/[facility] Co de Phone Number SCAN * FOLIC ACID (FOLATE) (08/07/2025 12:00 AM CDT) 08/07/2025 Provider Scan CHEMISTRY ORDERABLES Final Resul t Performing Organization Address City/[facility] Co de Phone Number SCAN * CMP (COMPREHENSIVE METABOLIC PANEL) (08/07/2025 12:00 AM CDT) Blood Result [facility] Jose David Montoya MD CHEMISTRY ORDERABLES Final R esult Performing Organization Address [facility] de Phone Number SCAN * COMPLETE BLOOD COUNT (CBC) WITH DIFF (08/07/2025 12:00 AM CDT) 08/07/2025 Result [facility] Provider Scan HEMATOLOGY ORDERABLES Final Resu lt Performing Organization Address [facility] de Phone Number SCAN * LAB-HEPATITIS PANEL, ACUTE (01/22/2008 5:57 PM CDT) HEPATITIS A IGM ANTIBODY NON DETECTED [facility] Comment: IGM ANTIBODIES TO HAV NOT DETECTED, DOES NOT EXCLUDE EARLY ACUTE OR RECOVERED HAV INFECTION. HEP B CORE AB (IGM) NON DETECTED [facility] Comment: IGM ANTI-HBC NOT DETECTED. DOES NOT EXCLUDE THE POSSIBILITY OF EXPOSURE TO OR INFECTION WITH HBV. HEPATITIS B SURFACE ANTGEN NON DETECTED [facility] hepatitis C antibody NON DETECTED [facility] Comment: ANTIBODIES TO HCV NOT DETECTED: DOES NOT EXCLUDE EARLY ACUTE HCV INFECTION. 01/22/2008 5:57 PM CDT 01/22/2008 5:57 PM CDT Result [facility] Nmoan Babcock DO CHG - LABORATORY Edited [facility] [address] [place] [address] from Last 3 Months or Most Recently Relevant to Health Maintenance [facility] Care Teams Advice Clerk Relationship Specialty Start Date End Date Juan Carlos Maier MD [address] [place] [address] PCP - General Pediatrics 02/18/25
== END 2025-09-04 13:30 | disposition home or self-care (01) ==
PROVIDERS: PCP Family Medicine; Visit Provider Family Medicine
DX: E11.9 Type 2 diabetes mellitus without complications (principal); E80.7 Disorder of bilirubin metabolism, unspecified
CPT/HCPCS: 36415; 80053; 82043; 82248; 83036; 85025